=== PATIENT | male | born 1965 | race Caucasian/White ===

== ENCOUNTER 2024-07-11 06:12 | Day surgery (SDC) | payer OTHER, BC, SELFPAY ==
[2024-07-10 08:28] VITALS: BMI 41.0
[2024-07-10 10:33] LABS: Hemoglobin 13.9 g/dL (13.0-18.0); Mean Corp Hgb Conc. 32.3 g/dL (33.0-37.0); Mean Corpuscular Hgb 25.6 pg (27.0-31.0); Mean Corpuscular Volume 79.3 fL (80.0-94.0); Platelet Count 213 10^3/uL (130-400); Red Blood Cell Count 5.42 10^6/uL (4.70-6.10); Red Cell Dist. Width 14.8 % (11.5-14.5); White Blood Cell Count 5.8 10^3/uL (4.8-10.8)
[2024-07-10 11:08] LABS: Blood Urea Nitrogen 20 mg/dl (9-20); Calcium 9.1 mg/dl (8.4-10.2); Carbon Dioxide 22 mmol/L (22-30); Chloride 105 mmol/L (98-107); Estimated Creatinine Clearance > 125 ml/min; Glucose 100 mg/dl (70-99); Potassium 4.3 mmol/L (3.5-5.1); Sodium 142 mmol/L (135-145); eGFR > 60.00
--- NOTE | 2024-07-10 16:57 | SUR.OPER ---
Patient called to be given arrival time at 1400. Patient was concerned because he had taken his farxiga on the morning of 07/09/24, and PAT called later that day with his pre operative instructions. PAT told patient that farxiga needed to be held for
72 hours prior to surgery, but he had already taken it. This RN spoke to Dr. Salcido and Dr. Javier - per anesthesia patient does not need to be canceled. Patient was called back and given this information.
[2024-07-11] VITALS (9 sets, daily range): BP systolic 113–151; BP diastolic 60–97; BMI 41.0
[2024-07-11 09:16] LABS: Glucose - Point of Care 99 mg/dl (70-99)
[2024-07-11] MEDS: CELEBREX 200 MG PO (09:20)
[2024-07-11] MEDS: NORMOSOL-R/PLASMALYTE-A 1000 IV (09:20)
[2024-07-11] MEDS: TYLENOL 1000 MG PO (09:20)
== END 2024-07-11 14:43 | disposition home or self-care (01) ==
LOC: SDS 06:12
PROVIDERS: ATTENDING PHYSICIAN Orthopaedic Surgery Hand Surgery; FAMILY PHYSICIAN Family Medicine; OTHER PHYSICIAN Orthopaedic Surgery
DX: S46.012A Strain of muscle(s) and tendon(s) of the rotator cuff of left shoulder, initial encounter (principal); X58.XXXA Exposure to other specified factors, initial encounter; Y99.0 Civilian activity done for income or pay
CPT/HCPCS: 29826; 29827; 36415; 80048; 82962; 85027; 93005; C1713